=== PATIENT | female | born 2005 | race African-American/Black ===

== ENCOUNTER 2025-05-23 11:50 | Emergency (ER) | payer OTHER, SELFPAY ==
[2025-05-23 11:51] VITALS: BMI 32.7
[2025-05-23 11:52] VITALS: BP 125/81
[2025-05-23 14:14] VITALS: BP 126/78
--- NOTE | 2025-05-23 14:29 | ED.GENMED ---
History of Present Illness
<Maty Rudoplh PA-C - Last Filed: 05/24/25 05:57>
General
Chief Complaint: Headache
Source: patient
Exam Limitations: none
Time Seen by Provider: 05/23/25 14:10
History of Present Illness
History of Present Illness:
20yoF with a history of congenital hydrocephalus s/p PONY EDGER shunt (follows with [facility], last shunt revision in 2019) and PCOS presenting with her mother for evaluation of intermittent headaches and lower abdominal and back pain for the past 3 months.
Patient has been taking Tylenol and ibuprofen for her headaches which is no longer providing relief. She did go to [facility] ER about a month and a half ago and had CT head which was reportedly normal and she was told that her shunt looked good. She
continues to have headaches but they have not changed in severity. She currently rates her headache as a 3/10 in severity. Patient is also reporting pain throughout her lower abdomen which radiates to the bilateral flank region. Nothing seems to
make the pain better or worse. She denies any associated vomiting, diarrhea, constipation, dysuria, vaginal bleeding, vaginal discharge, fevers.
Past History
<Maty Rudolph PA-C - Last Filed: 05/24/25 05:57>
Social History
Tobacco: Non-smoker
Alcohol: None
Drug: None
Phy Exam
<Maty Rudolph PA-C - Last Filed: 05/24/25 05:57>
General Physical Exam
General Presentation: well appearing and no apparent distress
General Skin: warm and dry
General Habitus: normal
General Mental: alert
ENT Exam
ENT Exam: normocephalic
Additional ENT: No meningismus
Cardiovascular Exam
Cardiovascular Exam: regular rate/rhythm
Pulmonary Exam
Pulmonary Exam: lungs clear, no respiratory distress, no rales, no crackles, no rhonchi and no wheezing
Gastrointestinal Exam
Gastrointestinal Exam: soft, non distended and other (Mild tenderness in lower abdomen. +CVA tenderness bilaterally. )
Neurological Exam
Neurological Exam: alert
Jayant Coma Scale
Eye Opening: Spontaneous
Verbal Response: Oriented
Motor Response: Obeys Commands
GCS Total Score: 15
Skin Exam
Skin Exam: normal color and warm/dry
Psychiatric Exam
Psychiatric Exam: normal mood/affect
<Denver Srivastava PA-C - Last Filed: 05/24/25 00:15>
Jayant Coma Scale
GCS Total Score: 15
Course
<Maty Rudolph PA-C - Last Filed: 05/24/25 05:57>
Orders/Labs/Results
Orders:
Orders
05/23/25 14:27
CT Abd/pelvis W Iv Cont Urgent
Comment:
Reason For Exam: lower abd pain, bilateral flank pain
CT Head W/o Iv Contrast Urgent
Comment:
Reason For Exam: headache, hx of PONY EDGER shunt
Test Result ONCE
05/23/25 14:40
Complete Blood Count/With Diff Urgent
05/23/25 14:41
Comprehensive Metabolic Panel Urgent
HCG, Serum Qualitative Screen Urgent
Lipase Urgent
05/23/25 14:42
Urinalysis Reflex To Culture Urgent
Date Specimen was Collected: 05/23/25
Time Specimen was Collected: 14:29
Abnormal Lab Results
05/23/25 05/23/25 05/23/25
14:40 14:41 14:42
RBC 4.14 L 10^6/uL
(4.20-5.40)
MCHC 32.7 L g/dL
(33.0-37.0)
MPV 10.5 H fL
(7.4-10.4)
Chloride 109 H mmol/L
(98-107)
Urine Ketones 1+ A
(Negative)
05/23/25 14:40
05/23/25 14:41
Vital Signs
Initial and Last Documented VS:
Initial Vital Signs
Temp Pulse Resp BP Pulse Ox
98 F 86 20 125/81 99
05/23/25 11:52 05/23/25 11:52 05/23/25 11:52 05/23/25 11:52 05/23/25 11:52
Last Documented Vital Signs
Temp Pulse Resp BP Pulse Ox
98.1 F 84 18 118/73 99
05/23/25 18:54 05/23/25 18:54 05/23/25 18:54 05/23/25 18:54 05/23/25 18:54
<Denver Srivastava PA-C - Last Filed: 05/24/25 00:15>
Orders/Labs/Results
Orders:
Orders
05/23/25 14:27
CT Abd/pelvis W Iv Cont Urgent
Comment:
Reason For Exam: lower abd pain, bilateral flank pain
CT Head W/o Iv Contrast Urgent
Comment:
Reason For Exam: headache, hx of PONY EDGER shunt
Test Result ONCE
05/23/25 14:40
Complete Blood Count/With Diff Urgent
05/23/25 14:41
Comprehensive Metabolic Panel Urgent
HCG, Serum Qualitative Screen Urgent
Lipase Urgent
05/23/25 14:42
Urinalysis Reflex To Culture Urgent
Date Specimen was Collected: 05/23/25
Time Specimen was Collected: 14:29
Abnormal Lab Results
05/23/25 05/23/25 05/23/25
14:40 14:41 14:42
RBC 4.14 L 10^6/uL
(4.20-5.40)
MCHC 32.7 L g/dL
(33.0-37.0)
MPV 10.5 H fL
(7.4-10.4)
Chloride 109 H mmol/L
(98-107)
Urine Ketones 1+ A
(Negative)
05/23/25 14:40
05/23/25 14:41
Vital Signs
Initial and Last Documented VS:
Initial Vital Signs
Temp Pulse Resp BP Pulse Ox
98 F 86 20 125/81 99
05/23/25 11:52 05/23/25 11:52 05/23/25 11:52 05/23/25 11:52 05/23/25 11:52
Last Documented Vital Signs
Temp Pulse Resp BP Pulse Ox
98.1 F 84 18 118/73 99
05/23/25 18:54 05/23/25 18:54 05/23/25 18:54 05/23/25 18:54 05/23/25 18:54
<Maty Rudolph PA-C - Last Filed: 05/24/25 05:57>
MDM/Problems Addressed
Differential Diagnosis Includes:
20yoF here with multiple complaints including headache and lower abd pain/back pain x 3 months. Hx of hydrocephalus with PONY EDGER. Last head CT about 1.5 months ago was reportedly normal. VSS. She is well appearing in no distress. Exam reassuring.
Differential diagnosis includes but is not limited to: migraine, tension headaches, PONY EDGER shunt malfunction, ovarian cyst, constipation, musculoskeletal, less likely appendicitis
Initial ED plan: Check abdominal labs, UA, CT head, and CT abdomen. Headache is a currently a 3/10 in severity and she is declining migraine cocktail.
Final assessment: Labs overall unremarkable including normal white count, renal function, LFTs. HCG negative. UA bland without signs of infection. Case signed out to Christophe Srivastava PA-C awaiting CT results.
<Maty Rudolph PA-C - Last Filed: 05/24/25 05:57>
*Pulse Oximetry
SaO2: 99
Oxygen Mode of Delivery: Room air
<Denver Srivsatava PA-C - Last Filed: 05/24/25 00:15>
*Pulse Oximetry
Patient hypoxic: no
*Critical Care Note
Total Time (30-74mins, 75-104mins- exclusive of procedures): Not Applicable
<Denver Srivastava PA-C - Last Filed: 05/24/25 00:15>
Update Note
Update Note:
CT scan findings reviewed with patient. She has noted to have an ovarian cyst however this is not likely causing her symptoms, recommend outpatient primary care or women's health follow-up for reimaging in 6 to 8 weeks. Slitlike ventricles on head
CT likely indicative of over shunting, communicated this finding to the patient and encouraged outpatient neurosurgery follow-up should any shunt revisions be needed
ED Attending Note
<Maty Rudolph PA-C - Last Filed: 05/24/25 05:57>
-
Portions of this chart may have been created with voice recognition software.� Occasional wrong word or��sound alike� substitutions may have occurred due to the inherent limitations of voice recognition software.
Discharge Plan
Departure
Patient Disposition: Home (Routine Discharge)
Date of Disposition: 05/23/25
Time of Disposition: 18:29
Patient with high blood pressure during this ER visit?: No
Discharge Problem:
Headache, Ovarian cyst
Instructions: Ventriculoperitoneal Shunt, Adult
Referrals:
CARLYN ROCK DO [Family Provider, Family Practice]
Nirseen Sweeney MD [Active, Neurosurgery]
Activity Restrictions/Additional Instructions:
Follow-up with neurosurgery regarding your PONY EDGER shunt
Follow-up with your primary care physician for repeat ultrasound of your ovarian cyst in 6 to 8 weeks
Interventions
Interventions:
*Risk Screen - Suicide Last Done: 05/23/25 11:52
*General Assessment Last Done: 05/23/25 11:52
*Neglect/Abuse Screening Last Done: 05/23/25 11:52
*ED- Fall Risk Assessment Last Done: 05/23/25 14:47
*ED COVID-19 Vaccine History Last Done: 05/23/25 14:47
*Nursing Disposition Last Done: 05/23/25 18:54
ED- Neurological Assessment Last Done: 05/23/25 14:44
Discharge Date and Time
Discharge Date/Time: 05/23/25 19:08
Print Language: [place]
[2025-05-23 14:50] LABS: Urine Character Clear (Clear)
[2025-05-23 14:56] LABS: Hematocrit 37.9 % (37.0-47.0); Hemoglobin 12.4 g/dL (12.0-16.0); Mean Corp Hgb Conc. 32.7 g/dL (33.0-37.0); Mean Corpuscular Volume 91.5 fL (81.0-99.0); Nucleated Red Blood Cells % 0 %; Platelet Count 236 10^3/uL (130-400); Red Cell Dist. Width 13.4 % (11.5-14.5)
[2025-05-23 15:08] LABS: HCG, Serum Qualitative Screen Negative
[2025-05-23 15:12] LABS: ALT (SGPT) 11 U/L (0-35); AST (SGOT) 15 U/L (14-36); Albumin 4.9 g/dl (3.5-5.0); Alkaline Phosphatase 81 U/L (38-126); Blood Urea Nitrogen 10 mg/dl (7-17); Calcium 9.8 mg/dl (8.4-10.2); Carbon Dioxide 22 mmol/L (22-30); Chloride 109 mmol/L (98-107); Estimated Creatinine Clearance > 125 ml/min; Glucose 92 mg/dl (70-99); Lipase 93 U/L (23-300); Potassium 4.2 mmol/L (3.5-5.1); Sodium 140 mmol/L (135-145); Total Protein 8.1 g/dl (6.3-8.2); eGFR > 60.00
[2025-05-23 16:08] VITALS: BP 134/74
[2025-05-23 18:45] VITALS: BP 118/73
[2025-05-23 18:54] VITALS: BP 118/73
== END 2025-05-23 19:08 | disposition home or self-care (01) ==
LOC: EMR 11:50
PROVIDERS: Physician Assistant; EMERGENCY PHYSICIAN Emergency Medicine; FAMILY PHYSICIAN Student in an Organized Health Care Education/Training Program
DX: R51.9 Headache, unspecified (principal); E28.2 Polycystic ovarian syndrome; Z98.2 Presence of cerebrospinal fluid drainage device
CPT/HCPCS: 99284; 70450; 74177; 80053; 81003; 83690; 84703; 85025; Q9967